=== PATIENT | male | born 1990 | race Caucasian/White ===

== ENCOUNTER 2022-05-03 13:28 | Emergency (ER) | payer OTHER, SELFPAY ==
--- NOTE | ~2022-05-03 | XR_ITS ---
XR hand LT min 3V DATE: 05/03/2022 13:54 INDICATION: Pain and swelling following jamming of hand catching a football TECHNIQUE: 3 views COMPARISON: None FINDINGS: No fracture or dislocation, periosteal reaction or bone destruction, erosive change or nain drocalcinosis. IMPRESSION: Negative Reviewed, dictated and finalized at location B. IMPRESSION: Negative
[2022-05-03 13:38] VITALS: BP 120/80; PULSE 72; RESP 14; TEMP 36.9; O2SAT 99
--- NOTE | 2022-05-03 14:12 | ED.UPPEXIN ---
HPI - Extremity Injury (Upper) General Chief Complaint: Extremity Injury, Upper Stated Complaint: jammed fingers on left hand Time Seen by Provider: 05/03/22 13:55 Source: patient, RN notes reviewed and old records reviewed Mode of arrival: ambulatory Limitations: no limitations History of Present Illness HPI narrative: 31-year-old male who presents to [facility] care with complaints of injury to his left 3rd and 4th fingers on Tuesday 2 days ago while catching a football. He report that the ball hit the end of those fingers and hyperextended his fingers.Patient states that he has pain to the fingers mid aspect on the ingiuez side with some bruising and swelling noted. Patient does have full ROM of fingers but with discomfort. He reports that he has applied ice to his fingers intermittently and taken Tylenol,and Ibuprofen for pain. MD complaint: injury to: left and finger (3rd and 4th) Onset (ago): day(s) (2) Treatments prior to arrival: cold therapy, NSAIDS and other (Tylenol) Related Data Home Medications Medication Instructions Recorded Confirmed No Home Medications 05/03/22 05/03/22 Allergies Allergy/AdvReac Type Severity Reaction Status Date / Time No Known Allergies Allergy Verified 05/03/22 13:47 Review of Systems Review of Systems: CONSTITUTIONAL: Denies fever, chills, or sweats. EYES: Denies visual changes, redness, or discharge. ENT: Denies rhinorrhea, congestion, sore throat, or otalgia. CARDIOVASCULAR: Denies chest pain, palpitations, or edema. RESPIRATORY: Denies cough or dyspnea. GASTROINTESTINAL: Denies abdominal pain, nausea, vomiting, or diarrhea. GENITOURINARY: Denies dysuria or hematuria. SKIN: Denies rash or itching. MUSCULOSKELETAL: Denies back pain, positive for left 3rd and 4th finger pain, or myalgia. NEUROLOGIC: Denies headache, numbness, or weakness. PSYCHIATRIC: Denies anxiety or depression. All systems reviewed & are unremarkable except as noted in HPI and below [facility] Past Medical History Medical History (Updated 05/04/22 @ 09:23 by Iva Lopez NP) Medical history non-contributory Surgical History Surgical History (Updated 05/04/22 @ 09:22 by Iva Lopez NP) Hx of cataract surgery left eye October 2021 Social History Social History (Updated 05/04/22 @ 09:20 by Iva Lopez NP) Smoking packs per day: 1 Smoking cigarettes per day: 20.0 Smoking status: Current every day smoker Tobacco type: cigarettes Alcohol intake: current Alcohol use details: social Substance use type: does not use Living arrangements: with family Gender identity (if verbalized by the patient): Male Comments At time of signature, agree with nursing past medical, surgical, social and family history. There is no relevant family history pertinent to the presenting complaint Exam Narrative: GENERAL: Well-appearing, well-nourished, and in no acute distress. HEAD: Normocephalic, atraumatic. EYES: PERRLA and EOMI. ENT: Nares clear, no rhinorrhea or epistaxis. Mucous membranes moist.TM's normal with good light reflex, throat pink with no lesions or exudates NECK: Supple.no lymphadenopathy CHEST: Clear to auscultation. No respiratory distress.SAO2 99% on room air, no tachypnea HEART: Regular rate and rhythm. No murmur heard. Normal peripheral pulses. ABDOMEN: Soft, nontender, nondistended, normal active bowel sounds. EXTREMITIES: Normal range of motion. No edema.Exception noted to iniguez aspect of left 3rd and 4th finger mid aspect with swelling and bruising and painful ROM, nail bed have brisk capillary refill with strong left radial pulse, patient reports no tingling or numbness to his fingers or left hand SKIN: Warm, dry, no rash. NEURO: No focal deficits. Alert and oriented x3. Course Course Level of Care: Express Care Visit Vital Signs Vital signs: Vital Signs Temperature 36.9 C 05/03/22 13:38 Pulse Rate 72 05/03/22 13:38 Respiratory Rate 14 05/03/22 13:3
== END 2022-05-03 14:44 | disposition home or self-care (01) ==
PROVIDERS: Emergency Provider Registered Nurse; PCP Internal Medicine
DX: S60.032A Contusion of left middle finger without damage to nail, initial encounter (principal); S60.042A Contusion of left ring finger without damage to nail, initial encounter; W21.01XA Struck by football, initial encounter; F17.210 Nicotine dependence, cigarettes, uncomplicated
CPT/HCPCS: 73130; 99213; G0463

== ENCOUNTER 2023-09-28 15:11 | Emergency (ER) | payer OTHER, SELFPAY ==
--- NOTE | 2023-09-28 15:17 | ED.GENADULT ---
HPI - General Adult General Chief complaint: Upper Respiratory Infection Stated complaint: Ear Pain/Sore Throat/Fever Source: patient, RN notes reviewed and old records reviewed Mode of arrival: ambulatory Limitations: no limitations History of Present Illness HPI narrative: 33-year-old male presents with complaints left ear pain for about 1 week then last night started having fever, and sore throat. Patient denies cough or congestion. Patient not taking anything for symptoms. MD complaint: sore throat Onset (ago): day(s) (1) Related Data Allergies Allergy/AdvReac Type Severity Reaction Status Date / Time No Known Allergies Allergy Verified 05/03/22 13:47 Review of Systems Constitutional: Constitutional: Reports no additional constitutional complaints, Denies body ache(s), Denies chills, Denies fatigue, Reports fever(s) and Denies headache(s) Eyes: Eyes: Reports no additional eye complaints and Denies blurry vision ENT: Reports system reviewed and no additional complaints, except as documented, Denies vertigo, Denies dizziness, Denies ear discharge, Reports otalgia, Denies facial pain, Denies headache(s), Denies nasal congestion, Denies nasal discharge, Denies sinus pain, Denies sinus pressure and Reports sore throat Cardiovascular: Cardiovascular: Reports no additional cardiovascular complaints, Denies chest pain, Denies chest pain at rest, Denies rapid heart rate and Denies dyspnea Respiratory: Respiratory: Reports no additional respiratory complaints, Denies chest congestion, Denies cough, Denies pain on inspiration, Denies pain with cough and Denies dyspnea Gastrointestinal: Gastrointestinal: Denies abdominal pain, Denies diarrhea, Denies nausea and Denies vomiting Integumentary/Breasts: Skin/Breast: Denies rash Neurologic: Reports system reviewed and no additional complaints, except as documented, Denies vertigo, Denies dizziness and Denies headache(s) Endocrine: Endocrine: Denies fatigue [facility] Past Medical History Medical History Medical history non-contributory Surgical History Surgical History Hx of cataract surgery left eye October 2021 Social History Social History Smoking packs per day: 1 Smoking cigarettes per day: 20.0 Smoking status: Current every day smoker Tobacco type: cigarettes Alcohol intake: current Alcohol use details: social Substance use type: does not use Living arrangements: with family Gender identity (if verbalized by the patient): Male Comments At the time of my signature, I reviewed and agree with the nursing past medical, surgical, social, and family history. There is no relevant family history pertinent to the patient complaint. Exam Const: General: cooperative, healthy appearing, no acute distress and well nourished Nutritional Appearance: well nourished Orientation/consciousness: patient oriented x3 Limitations: no limitations HENMT: Head: normal to inspection and normocephalic Ears: external ears normal, mastoids normal, Abnormal EAC present and TM abnormal wth effusion serous bilateral Face/Nose/Sinus: normal facial exam Face and sinus: normal facial exam Mouth: Yes Normal oral and palatal mucosa present, Yes oropharynx normal and Yes moist mucous membranes Throat: tonsils normal, uvula midline and no uvular edema Eyes: General: appearance normal, both eyes and all related structures Sclera: sclerae normal Pupils: Equal, round and reactive pupils present Resp: Effort & Inspection: normal respiratory effort, able to speak in complete sentences, no audible wheezes, no cough, no respiratory distress and no retractions Auscultation: clear to auscultation bilaterally, no crackles, no rales, no rhonchi and no wheezes Cardio: Rate: regular rate Rhythm: regular rhythm Skin: General skin
[2023-09-28 15:24] VITALS: BP 129/97; PULSE 111; RESP 16; TEMP 37.2; O2SAT 98
== END 2023-09-28 15:35 | disposition home or self-care (01) ==
PROVIDERS: Emergency Provider Registered Nurse; PCP Internal Medicine
DX: J02.0 Streptococcal pharyngitis (principal); F17.210 Nicotine dependence, cigarettes, uncomplicated
CPT/HCPCS: 87880; 99213; G0463

== ENCOUNTER 2025-05-09 11:45 | Emergency (ER) | payer SELFPAY ==
[2025-05-09 11:50] VITALS: BP 130/81; PULSE 99; RESP 16; TEMP 37.2; O2SAT 99
--- OUTSIDE RECORDS SUMMARY | 2025-05-09 11:56 | XMS_ITS | Clinical Summary ---
Author Organization [facility] Address [address], [place] [address] Phone Care Team Providers Care Roofer Gypsum Name Role Phone Kota Cardoso MD Primary Care Provider [phone] Allergies No known active allergies Medications No known medications Family History Medical History Relation Name Comments High Cholesterol Brother Seizures Maternal Grandfather No Known Problems Mother Relation Name Status Comments Brother Alive Father Maternal Grandfather Mother Alive Social History Tobacco Use Types Packs/Day Years Used Date Smoking Tobacco: Every Day Cigarettes 1 20 Smokeless Tobacco: Current Tobacco Cessation:Ready to Q uit: No Alcohol Use Standard Drinks/Week Comments Yes 0 (1 standard drink = 0.6 oz pur e alcohol) rare Sex and Gender Information Value Date Recorded Sex Assigned at Not on file Legal Sex Male 3:03 PM CDT Gender Identity Not on file Sexual Orientation Not on file Last Filed Vital Signs Vital Sign Reading Time Taken Comments Blood Pressure 120/76 07/07/2020 3:04 PM CDT Pulse 97 07/07/2020 3:04 PM CDT Temperature 36.5 C (97.7 F) 07/07/2020 3:04 PM CDT Respiratory Rate 16 07/07/2020 3:04 PM CDT Oxygen Saturation 98% 07/07/2020 3:04 PM CDT Inhaled Oxygen Concentration - - Weight 71.1 kg (156 lb 12.8 oz) 07/07/2020 3:04 PM CDT Height 165.1 cm (5' 5) 07/07/2020 3:04 PM CDT Body Mass Index 26.09 07/07/2020 3:04 PM CDT Plan of Treatment Health Maintenance Due Date Last Done Comments Hepatitis C Virus (HCV) Screening 1988 TdaP Immunization 1988 Human Papillomavirus (HPV) Immunization (1 - 3-dose SCDM series) 2015 SARS-COV-2 Immunization ( season) 2024 Influenza Immunization (#1) 2025 Respiratory Syncytial Virus (RSV) Immunization (Adult) (1 - 1-dose 75+ series) 2063 Hepatitis B Immunization Completed 998, 06/15/1997, 05/15/1997 DTaP/Tdap/Td Immunization Discontinued 2002, 04/22/1994, 03/23/1989, Additional history exists Meningococcal Immunization (ACWY) Aged Out No longer eligible based on patient's age to complete this topic Pneumococcal Immunization Combined Aged Out No longer eligible based on patient's age to complete this topic Rotavirus Immunization Aged Out No lo nger eligible based on patient's age to complete this topic Care Teams Roofer Gypsum Relationship Specialty Start Date End Date Kota Cardoso MD PCP - General Internal Medicine 06/23/20
--- NOTE | 2025-05-09 12:11 | ED.HA ---
HPI - Headache General Chief Complaint: Headache Stated Complaint: fatigue/migraine Time Seen by Provider: 05/09/25 11:53 Source: patient and RN notes reviewed Mode of arrival: ambulatory Limitations: no limitations History of Present Illness HPI Narrative: Patient presents today with a 3-4 day history of fatigue and headache. Patient had COVID 2 weeks ago, states his symptoms have improved but fatigue and headache are new symptoms over the last several days. Denies any additional current symptoms to include cough, congestion, rhinorrhea, sore throat, vision changes, dizziness or lightheadedness, numbness or tingling, current fever. He has been taking Tylenol and ibuprofen with some relief and currently rates his pain 3/10. Denies history of migraines. States this is not his worst headache ever. Related Data Home Medications ?Medication ?Instructions ?Recorded ?Confirmed ?Last Taken ?Type No Home Medications 05/09/25 05/09/25 Unknown History Allergies Allergy/AdvReac Type Severity Reaction Status Date / Time No Known Allergies Allergy Verified 05/09/25 11:53 [facility] Past Medical History Medical History Medical history non-contributory Surgical History Surgical History Hx of cataract surgery left eye October 2021 Social History Social History Smoking packs per day: 1 Smoking cigarettes per day: 20.0 Smoking status: Current every day smoker Tobacco type: cigarettes Alcohol intake: current Alcohol use details: social Substance use type: does not use Living arrangements: with family Gender identity (if verbalized by the patient): Male Comments At time of signature, I have reviewed and agree with nursing past medical, surgical, social and family history unless otherwise noted. Please see nursing chart for further information. There is no relevant family history pertinent to the presenting complaint Exam Narrative: GENERAL: Well-appearing, well-nourished, and in no acute distress. HEAD: Normocephalic, atraumatic. EYES: EOMI. PERRL. No redness or drainage. Conjunctivae normal. ENT: Mucous membranes pink and moist. Nares clear. No rhinorrhea. TMs normal bilaterally. Throat normal. Uvula midline. NECK: Normal AROM. Supple. No lymphadenopathy. CHEST: No respiratory distress. Clear to auscultation. HEART: Regular rate and rhythm. No murmur appreciated. Normal peripheral pulses. EXTREMITIES: Normal range of motion. No edema. SKIN: Warm, dry, no rash. Capillary refill normal. Normal skin turgor. NEURO: No focal deficits. Alert and oriented x3. Gait steady. PSYCH: Normal affect. No signs of depression or anxiety. Course Course Level of Care: Express Care Visit Vital Signs Vital signs: Vital Signs Temperature 99.0 F 05/09/25 11:50 Pulse Rate 99 05/09/25 11:50 Respiratory Rate 16 05/09/25 11:50 Blood Pressure 130/81 05/09/25 11:50 Pulse Oximetry 99 05/09/25 11:50 Oxygen Delivery Room Air 05/09/25 11:50 Temperature 99.0 F 05/09/25 11:50 Pulse Rate 99 05/09/25 11:50 Respiratory Rate 16 05/09/25 11:50 Blood Pressure 130/81 05/09/25 11:50 Pulse Oximetry 99 05/09/25 11:50 Oxygen Delivery Room Air 05/09/25 11:50 Reviewed MDM - Headache MDM Narrative Medical decision making narrative: 34-year-old male patient presents with fatigue and headache times 3-4 days after having COVID 2 weeks ago. Denies any additional symptoms. No history of migraines or chronic headaches. Not his worst headache ever. Headache has been controlled with some Tylenol and ibuprofen. Exam is benign. No red flag symptoms that would warrant an ER transfer this time. Vital signs stable. Symptoms he the lower residual from COVID infection, or could be developing long COVID. Patient waiting on new insurance to start from new job to initiate care with new PCP in few more months. Recommend follow up in 1-2 weeks if symptoms persist. Strict ED precautions given. Patient agrees with plan Differential Diagnosis Differential diagnosis: Likely migraine, tension headache, headache and other (post COVID syndrome) Critical Care Time Critical Care Time Critical Care Time: No Discharge Plan Discharge Clinical Impression: Fatigue Qualifiers: Fatigue type: unspecified Qualified Code(s): R53.83 - Other fatigue Headache Qualifiers: Headache type: unspecified Headache chronicity pattern: acute headache Intractability: not intractable Qualified Code(s): R51.9 - Headache, unspecified Patient Disposition: Home Condition: Stable Instructions: Acute Headache (DC), Long COVID (ED) Additional Instructions: Please continue the Tylenol or ibuprofen for your headache. Make sure your resting and staying hydrated. Follow-up with the PCP as soon as possible for further evaluation. As discussed, if you develop a new fever greater than 100.3, dizziness, lightheadedness, changes in your vision, nausea or vomiting, please go to the ER for further evaluation. Your blood pressure was elevated above 120/80 today at Urgent Care. This puts you above the threshold for follow up. Please schedule a followup visit with your personal physician as soon as possible, for further evaluation and treatment. Even blood pressure exceeding 120/80 may indicate pre-hypertension. Patient Language: Peruvian Prescriptions: No Action No Home Medications Follow-up/Referrals: PHYSICIAN,ACCOUNT INSTALLATION SPECIALIST [Primary Care Provider] - Stand Alone Forms: Work/School Release IP Time of Disposition: 12:10
== END 2025-05-09 12:16 | disposition home or self-care (01) ==
PROVIDERS: Emergency Provider Nurse Practitioner
DX: R53.83 Other fatigue (principal); R51.9 Headache, unspecified; F17.210 Nicotine dependence, cigarettes, uncomplicated; Z86.16 Personal history of COVID-19
CPT/HCPCS: 99213; G0463